=== PATIENT | male | born 1965 | race Hispanic/Latino ===

== ENCOUNTER 2022-03-21 12:39 | Emergency (ER) | payer SELFPAY ==
[2022-03-21] MEDS ORDERED: Ketorolac Tromethamine 30 MG/ML VIAL ONE (13:38)
[2022-03-21] MEDS ORDERED: Ondansetron ODT 4 MG TAB ONE (13:38)
[2022-03-21] MEDS ORDERED: Morphine 4 MG/ML VIAL ONE (13:38)
[2022-03-21] MEDS ORDERED: Diazepam 5 MG TAB ONE (15:01)
== END 2022-03-21 15:11 ==
LOC: ERS 12:39
DX: M54.41 Lumbago with sciatica, right side (principal); E11.9 Type 2 diabetes mellitus without complications
CPT/HCPCS: 96372; 99283; J1885; J2270; Q0162